=== PATIENT | female | born 1965 | race Caucasian/White ===

== ENCOUNTER 2017-09-20 16:03 | Emergency (ER) | payer SELFPAY ==
[~2017-09-20] VITALS: Ht 170.2 cm; Wt 99.8 kg
[2017-09-20 16:17] VITALS: BP_SYST 120
[2017-09-20] MEDS ORDERED: IPRATROPIUM BROM 0.5 MG/2.5 ML VIAL.NEB (ATROVENT) IH ONE (16:30)
[2017-09-20] MEDS ORDERED: ALBUTEROL SULFATE 0.083% 2.5 MG/3 ML VIAL.NEB IH ONE (16:30)
[2017-09-20] MEDS ORDERED: MAGNESIUM SULFATE 1 GM in NS 50 ML IV ONE (16:30)
[2017-09-20] MEDS ORDERED: methylPREDNISolone SOD SUCC/PF 62.5 MG/ML VIAL IVP ONE (16:30)
[2017-09-20] MEDS ORDERED: MAGNESIUM SULFATE 1 GM/2 ML VIAL ONE (16:36)
[2017-09-20 17:24] LABS: HEMATOCRIT 41.8 % (36-48); HEMOGLOBIN 13.5 g/dL (12.0-16.0); MEAN CORPUSCULAR HEMOGLOBIN 29 pg (27-31); MEAN CORPUSCULAR HGB CONC 32 % (32-36); MEAN CORPUSCULAR VOLUME 90 fL (79.0-98.0); PLATELET COUNT (AUTO) 124 K/uL (130-430); RED BLOOD CELL COUNT(AUTO) 4.68 MIL/uL (4.2-6.2); RED CELL DISTRIBUTION WIDTH 19.1 % (9.0-15.0); WHITE BLOOD COUNT (AUTO) 27.4 K/uL (4.8-10.8)
[2017-09-20 17:26] LABS: CREATININE 1.12 mg/dL (0.55-1.30); POTASSIUM 3.8 mmol/L (3.5-5.1)
[2017-09-20 17:31] LABS: ALBUMIN 4.5 g/dL (3.4-4.8); TOTAL BILIRUBIN 2.9 mg/dL (0.0-1.0)
[2017-09-20 17:33] LABS: INR 1.4 (0.8-1.2); PROTHROMBIN TIME 13.9 SECS (9.5-12.5)
[2017-09-20 17:35] LABS: CALCIUM 9.7 mg/dL (8.4-11.0)
[2017-09-20 18:04] LABS: BAND % (MANUAL) 23 % (0-6)
[2017-09-20 18:05] LABS: ATYPICAL LYMPHOCYTES % 2 % (0-0); BASOPHILS % (MANUAL) 0 % (0-2); EOSINOPHILS % (MANUAL) 1 % (0-7); LYMPHOCYTES % (MANUAL) 8 % (20-46); METAMYELOCYTES % 1 % (0-0); MONOCYTES % (MANUAL) 2 % (0-11)
[2017-09-20 18:10] VITALS: BP_SYST 120
== END 2017-09-20 18:10 | disposition left against medical advice (07) ==
LOC: SED 16:03
DX: I50.9 Heart failure, unspecified (principal); I26.99 Other pulmonary embolism without acute cor pulmonale; R09.02 Hypoxemia; R79.89 Other specified abnormal findings of blood chemistry; Z88.8 Allergy status to other drugs, medicaments and biological substances
CPT/HCPCS: 36415; 36600; 71010; 80053; 82550; 82803; 83880; 84484; 85007; 85027; 85379; 85610; 85730; 93005; 94640; 96365; 96375; 99285; J2930; J3475